=== PATIENT | female | born 1950 | race Caucasian/White ===

== ENCOUNTER 2019-12-01 05:51 | Day surgery (SDC) | payer MEDICARE, BC ==
[2019-12-01] MEDS ORDERED: Nozin Nasal Sanitizer NASBOTH ONE (06:30)
[2019-12-01] MEDS ORDERED: Lactated Ringers 1,000 ML IV SCH (06:30)
[2019-12-01] MEDS ORDERED: Bupivacaine 0.5% 30 ML SDV ONE ×2 (06:36→07:37)
[2019-12-01] MEDS ORDERED: ceFAZolin 2 GM in Premix Bag 1 BAG IV ONE (07:00)
[2019-12-01] MEDS ORDERED: Propofol 200 MG/20 ML SDV ONE ×2 (07:33→08:36)
[2019-12-01] MEDS ORDERED: fentaNYL 100 MCG/2 ML SDV ONE (07:33)
[2019-12-01] MEDS ORDERED: Midazolam 1 MG/ML 2 ML SDV ONE (07:33)
[2019-12-01] MEDS ORDERED: Labetalol 20 MG/4 ML Syringe ONE (08:54)
[2019-12-01] MEDS ORDERED: Acetaminophen/oxyCODONE 325-5 MG Tab PO ONE (11:00)
[2019-12-01 11:03] VITALS: BP 134/77; PULSE 77
--- NOTE | 2019-12-08 18:47 | OR ---
DATE OF PROCEDURE: 12/01/2019 SURGEON: Chino Amador MD PREOPERATIVE DIAGNOSIS: Impingement, left shoulder, possible rotator cuff tear. POSTOPERATIVE DIAGNOSES: 1. Impingement, left shoulder. 2. Severe partial thickness rotator cuff tear. 3. Severe synovitis and bursitis, left shoulder. PROCEDURE: Arthroscopy, left shoulder, with limited synovectomy and subacromial decompression with acromioplasty. Open rotator cuff repair ANESTHESIA: Interscalene block with sedation. INDICATIONS: Vicki is a 69-year-old female with a history of progressive pain in the left shoulder. Examination and imaging are consistent with impingement and severe rotator cuff tendinopathy and a possible partial or small full-thickness tear. She has failed conservative treatment and taken to the operating room for arthroscopic acromioplasty and possible rotator cuff repair. Risks, benefits, potential complications of procedure were discussed. DESCRIPTION OF PROCEDURE: After adequate anesthesia was obtained, the patient was placed in the lateral decubitus position and secured with a strange bag positioner. Left shoulder and arm were prepped and draped in a sterile fashion. 10 pounds of traction was placed through the traction unit. Standard posterior portal was established and the glenohumeral joint was inspected. This revealed severe synovitis throughout the joint with hypertrophic synovium and quite marked inflammation and erythema. Anterior portal was established. Glenohumeral joint showed minimal degenerative change of the articular surfaces, but did show some degeneration of the labrum. Shaver was used to debride the anterior labrum, and a combination of the shaver and ablation wand were used to complete a synovectomy within the joint. Subscapularis was intact. Biceps tendon was also intact. Undersurface of the rotator cuff showed significant thinning, near full-thickness tear. Area of the partial- thickness tear was marked with a PDS suture, and the scope was then withdrawn and placed in the subacromial space. Evaluation of the subacromial space revealed quite severe bursitis similar to the synovitis seen within the joint. Lateral portal was established, and using a combination of ablation wand and shaver, a bursa was resected for visualization and debridement of the bursitis. Coracoacromial ligament was identified and showed significant impingement against the rotator cuff with a very tight subacromial space. The ligament was released using the ablation wand and a arden was then utilized to perform an acromioplasty removing the anterolateral edge of the acromion and bevelling this medially and posteriorly. Once this was completed, the rotator cuff was inspected, and this showed intact cuff on the bursal side. The area of the partial-thickness tear was identified and palpated with a probe and found to have significant weakness, and decision was made to proceed with cuff repair. Due to the severe inflammation of the tissue it was difficult to control all the small bleeders obscuring visualization. Decision was mad to convert to a mini- open repair. The scope was withdrawn and the lateral portal was extended and the deltoid was split in line with the fibers. A self retaining retractor was placed and the area of the tear was visualized. A 15 blade was used to resect the small section of partial tear. A ronguer was used to lightly decorticate the footprint. A single Mitek Healix anchor was placed and the sutures were passed through the tendon and tied down. The level of the acromioplasty was evaluated and further smoothed over with a rasp. The deltoid was repaired in a side to side fashion and the skin close with 2-0 Vicryl and 3-0 Monocryl. Steri-Strips were applied. Sterile dressing was then placed. The patient tolerated procedure well. There were no complications. Taken from the operating room in stable condition. Chino Amador MD /[id number] MTDDavid
== END 2019-12-01 12:12 | disposition home or self-care (01) ==
LOC: JP.SDS 05:51
PROVIDERS: ATTEND Specialist
DX: M75.112 Incomplete rotator cuff tear or rupture of left shoulder, not specified as traumatic (principal); M25.812 Other specified joint disorders, left shoulder; M65.812 Other synovitis and tenosynovitis, left shoulder; M75.52 Bursitis of left shoulder; E03.9 Hypothyroidism, unspecified; E78.00 Pure hypercholesterolemia, unspecified; E21.3 Hyperparathyroidism, unspecified; E66.9 Obesity, unspecified; Z79.899 Other long term (current) drug therapy; Z68.32 Body mass index [BMI] 32.0-32.9, adult
CPT/HCPCS: 23412; 29820; 29826; A9270; C1713; J0690; J2250; J2704; J3010; J3490; J7120

== ENCOUNTER 2020-07-12 05:30 | Day surgery (SDC) | payer MEDICARE, BC ==
[2020-07-12] MEDS ORDERED: ceFAZolin 1 GM in Premix Bag 1 BAG IV ONE (06:00)
[2020-07-12] MEDS ORDERED: Nozin Nasal Sanitizer NASBOTH ONE (06:00)
[2020-07-12] MEDS ORDERED: ceFAZolin 1 GM in Sodium Chloride 0.9% 50 ML IV ONE (06:00)
[2020-07-12] MEDS ORDERED: Lactated Ringers 1,000 ML IV SCH (06:00)
[2020-07-12] MEDS ORDERED: Bupivacaine 0.5% 30 ML SDV ONE (06:52)
[2020-07-12] MEDS ORDERED: fentaNYL 100 MCG/2 ML SDV ONE ×2 (07:22→08:25)
[2020-07-12] MEDS ORDERED: Midazolam 1 MG/ML 2 ML SDV ONE (07:22)
[2020-07-12] MEDS ORDERED: Propofol 200 MG/20 ML SDV ONE ×3 (07:22→08:24)
[2020-07-12] MEDS ORDERED: Morphine 2 MG/ML SYRINGE IVPUSH ONE (09:35)
[2020-07-12 10:43] VITALS: BP 150/103; PULSE 81
--- NOTE | 2020-07-26 21:51 | OR ---
DATE OF PROCEDURE: 07/12/2020 SURGEON: Chino Amador MD PREOPERATIVE DIAGNOSES: Impingement, right shoulder, with a rotator cuff tear. POSTOPERATIVE DIAGNOSES: 1. Impingement, right shoulder. 2. Severe rotator cuff tendinopathy with multiple perforations. 3. Synovitis. 4. Bursitis. PROCEDURES: Arthroscopy, right shoulder, with subacromial decompression, acromioplasty, and rotator cuff repair. HISTOLOGIC TECHNICIAN: FREDRICK Hart ANESTHESIA: Interscalene block with sedation. INDICATIONS: Vicki is a pleasant 70-year-old female with a history of progressive right shoulder pain for the past few months. She has failed conservative treatment, and imaging and examination are consistent with impingement and a small rotator cuff tear. She now presents for arthroscopic evaluation with decompression and repair of the cuff as necessary. Risks, benefits, and potential complications of the procedure were discussed. PROCEDURE IN DETAIL: After adequate anesthesia was obtained, the patient was placed in the lateral decubitus position and secured with a strange bag positioner. The right shoulder and arm were prepped and draped in a sterile fashion. Ten pounds of traction was placed in the shoulder traction unit, and a standard posterior portal was established. The glenohumeral joint was inspected, and this revealed [id number] synovitis throughout the joint. The humeral head and glenoid were without degenerative change and intact articular cartilage. The labrum was intact. The biceps tendon was also intact. The subscapularis showed some minor superior-edge fraying but no significant damage. The articular side of the rotator cuff showed significant tendinopathy with no retraction. The area of most significant tendinopathy and possible small full-thickness tear was marked with a spinal needle and a PDS suture. The scope was then withdrawn and placed in the subacromial space. The subacromial bursa showed significant erythema throughout. A lateral portal was established. The bursa was resected for visualization, and the coracoacromial ligament showed significant fraying, consistent with impingement. Using a combination of a Serfas ablation wand and a shaver, soft tissues were cleared from the undersurface of the acromion, including the coracoacromial ligament. The anterolateral edge was delineated, and a bur was then utilized to perform an acromioplasty, removing 4 to 5 mm from the anterolateral edge and bevelling this medially and posteriorly. The bursal surface of the rotator cuff was further inspected, and this showed significant tendinopathy with multiple small perforations full-thickness through the tendon but no one large tear and no retraction. A shaver was used to debride the area of tendinopathy and to take it back to solid tissue. The superior footprint was debrided and lightly decorticated with a bur. Two Mitek Healix Anchors were then placed in the tuberosity, and sutures were brought up through the tendon in a mattress fashion. The most anterior suture pair was tied down in a simple fashion. The remaining 3 sets were tied down in a mattress fashion. Two of the suture pairs were then selected for a lateral row. A punch was used to establish placement of the lateral row. Sutures were passed through the knotless anchor, and the anchor was then secured into the tuberosity, providing excellent approximation of the edge of the tendon. All sutures were then cut. The arm was taken through range of motion. The repair was stable. This was viewed from the posterior and lateral portal. The shoulder was drained. The scope was withdrawn. The port sites were closed in a standard fashion, and a sterile dressing was applied. The patient tolerated the procedure very well. There were no complications. She was taken from the operating room in stable condition. Chino Amador MD /[id number]
== END 2020-07-12 11:45 | disposition home or self-care (01) ==
LOC: JP.SDS 05:30
PROVIDERS: ATTEND Specialist
DX: M75.101 Unspecified rotator cuff tear or rupture of right shoulder, not specified as traumatic (principal); M25.811 Other specified joint disorders, right shoulder; M75.51 Bursitis of right shoulder; M65.811 Other synovitis and tenosynovitis, right shoulder; E20.9 Hypoparathyroidism, unspecified; Z91.013 Allergy to seafood; Z91.048 Other nonmedicinal substance allergy status
CPT/HCPCS: 29826; 29827; 36415; 80053; 85027; A9270; C1713; J0690; J2250; J2270; J2704; J3010; J7120; J3490